=== PATIENT | female | born 1970 | race American Indian/Alaskan Native ===

== ENCOUNTER 2017-03-07 18:55 | Emergency (ER) | payer SELFPAY ==
[2017-03-07 19:28] LABS: Basophils % (Auto) 0.6 % (0.0-1.8); Eosinophils % (Auto) 4.6 % (0.0-4.3); Hematocrit 38.3 % (30.3-42.9); Hemoglobin 12.5 gm/dl (10.1-14.3); Mean Corpuscular HGB Conc 33 % (30-34); Mean Corpuscular Hemoglobin 27 pg (28-32); Mean Corpuscular Volume 82 fl (79-97); Platelet Count 178 K/mm3 (140-440); Red Blood Count 4.68 M/mm3 (3.65-5.03); Red Cell Distribution Width 14.5 % (13.2-15.2); White Blood Count 8.4 K/mm3 (4.5-11.0)
[2017-03-07 19:50] LABS: Anion Gap 17 mmol/L; Blood Urea Nitrogen 11 mg/dL (7-17); Calcium 9.3 mg/dL (8.4-10.2); Carbon Dioxide 25 mmol/L (22-30); Chloride 101.9 mmol/L (98-107); Glucose 112 mg/dL (65-100); Potassium 3.7 mmol/L (3.6-5.0); Sodium 140 mmol/L (137-145)
[2017-03-08] MEDS ORDERED: ZOFRAN IV ONE (01:35)
[2017-03-08] MEDS ORDERED: MORPHINE IV ONE (01:35)
[2017-03-08] MEDS ORDERED: VALIUM IV ONE (01:38)
[2017-03-08] MEDS ORDERED: NACL ONE (02:39)
--- NOTE | 2017-03-08 03:21 | Emergency Department Report ---
HPI - General Chief Complaint: Chest Pain Time Seen by Provider: 03/08/17 00:45 - HPI HPI: The patient is a 46-year-old female presents for evaluation of chest pain. The patient reports chest pain for the past one week, constant since onset, 7/10 in severity, sharp in quality, exacerbated with deep breaths, concentrated to the right side of the chest. The patient also reports associated dyspnea and bilateral lower leg swelling. The patient lives fever, cough, syncope, hemoptysis, unilateral leg swelling, oral contraceptive use, recent immobilization, history of DVT or PE, recent cancer. ED Past Medical Hx - Past Medical History Hx Asthma: Yes - Surgical History Additional Surgical History: tubal ligation, cyct removed, eye surgery - Social History Smoking Status: Current Every Day Smoker Substance Use Type: None - Medications Home Medications: Home Medications Medication Instructions Recorded Confirmed Last Taken Type Cyclobenzaprine [Flexeril] 10 mg PO TID PRN #14 tablet 10/30/15 Unknown Rx HYDROcodone/APAP 5-325 [[place] 1 - 2 each PO Q6HR PRN #20 tablet 10/30/15 Unknown Rx 5/325] Ibuprofen [Motrin 800 MG tab] 800 mg PO Q8HR PRN #20 tablet 10/30/15 Unknown Rx Furosemide [Lasix] 20 mg PO QDAY #20 tablet 03/08/17 Unknown Rx HYDROcodone/APAP 7.5-325 [[place] 1 each PO Q8HR PRN #15 tablet 03/08/17 Unknown Rx 7.5-325 mg TAB] ED Review of Systems ROS: Stated complaint: CHEST PAIN Other details as noted in HPI Constitutional: denies: fever ENT: denies: throat or neck pain Respiratory: denies: cough, shortness of breath Cardiovascular: reports chest pain Endocrine: denies unexplained weight loss or gain Gastrointestinal: denies: abdominal pain, nausea Genitourinary: denies: dysuria Musculoskeletal: denies: leg swelling Skin: denies: rash Neurological: denies: headache Hematological/Lymphatic: denies: easy bleeding or easy bruising Psych: denies sadness or hopelessness Physical Exam - Physical Exam Vital Signs: Vital Signs 03/07/17 03/07/17 03/08/17 19:13 23:53 00:01 Temperature 98 F Pulse Rate 102 H 82 Respiratory 20 14 Rate Blood Pressure 151/85 108/58 Blood Pressure 104/71 [Right] O2 Sat by Pulse 100 99 100 Oximetry 03/08/17 03/08/17 03/08/17 00:11 00:21 00:25 Temperature Pulse Rate 88 91 H 91 H Respiratory 19 17 20 Rate Blood Pressure 108/58 108/58 108/58 Blood Pressure [Right] O2 Sat by Pulse 100 100 99 Oximetry 03/08/17 03/08/17 01:00 02:01 Temperature Pulse Rate 91 H Respiratory 18 Rate Blood Pressure 124/52 124/52 Blood Pressure [Right] O2 Sat by Pulse 97 97 Oximetry Physical Exam: General: well-nourished, well-developed, no acute distress Head: Normocephalic, atraumatic Eyes: normal sclera ENT: Mucous membranes are pink and moist Neck: trachea midline, neck supple, No neck stiffness, no cervical adenopathy Respiratory: Breath sounds equal bilaterally, no wheezing, rales, or rhonchi Cardio: S1 and S2 present, no murmurs, rubs, gallops, capillary refill is brisk Abdomen: Normoactive bowel sounds, soft abdomen, no rigidity, no guarding or rebound tenderness Musc: 1+ pitting edema of bilateral lower legs Skin: No rash Neuro: no facial drooping, normal speech Psych: Normal affect ED Course Vital Signs 03/07/17 03/07/17 03/08/17 19:13 23:53 00:01 Temperature 98 F Pulse Rate 102 H 82 Respiratory 20 14 Rate Blood Pressure 151/85 108/58 Blood Pressure 104/71 [Right] O2 Sat by Pulse 100 99 100 Oximetry 03/08/17 03/08/17 03/08/17 00:11 00:21 00:25 Temperature Pulse Rate 88 91 H 91 H Respiratory 19 17 20 Rate Blood Pressure 108/58 108/58 108/58 Blood Pressure [Right] O2 Sat by Pulse 100 100 99 Oximetry 03/08/17 03/08/17 01:00 02:01 Temperature Pulse Rate 91 H Respiratory 18 Rate Blood Pressure 124/52 124/52 Blood Pressure [Right] O2 Sat by Pulse 97 97 Oximetry ED Medical Decision Making - Lab Data Result diagrams: 03/07/17 19:18 03/07/17 19:18 - Medical Decision Making The patient was seen and examined by myself. The patient is placed on a cardiac rehabilitation program director and continuous pulse ox. On initial evaluation, the patient was found to be in no distress. EKG was negative for findings suggestive of acute cardiac infarct. Labs and imaging are obtained. The patient is given IV morphine for her pain. Chest x-ray is negative for pneumothorax, focal consolidation, pulmonary vascular congestion, pleural effusion, or other obvious acute cardiopulmonary disease process. Lab results were non-concerning including levels of troponin, WBC, hemoglobin, hematocrit, electrolytes, renal function. CT angiogram of the chest is negative for pulmonary embolism, aortic dissection, or other emergent disease process. The patient was reevaluated and reported that their symptoms were markedly improved. The patient is stable for discharge with outpatient follow-up. The patient is given follow-up and return instructions. The patient expressed understanding and agreed with the plan. The patient is discharged in stable condition. Critical care attestation.: If time is entered above; I have spent that time in minutes in the direct care of this critically ill patient, excluding procedure time. ED Disposition Clinical Impression: Acute chest pain Dyspnea Qualifiers: Dyspnea type: shortness of breath Qualified Code(s): R06.02 - Shortness of breath Disposition: DISCHARGED TO HOME OR SELFCARE Is pt being admited?: No Does the pt Need Aspirin: No Condition: Stable Instructions: Chest Pain (ED) Prescriptions: Furosemide [Lasix] 20 mg PO QDAY #20 tablet HYDROcodone/APAP 7.5-325 [[place] 7.5-325 mg TAB] 1 each PO Q8HR PRN #15 tablet PRN Reason: Pain Referrals: PRIMARY CARE, [Primary Care Provider] - 3-5 Days Time of Disposition: 04:32
--- NOTE | 2017-03-08 03:54 | Cat Scan Report ---
FINAL REPORT PROCEDURE: CT ANGIO CHEST TECHNIQUE: Computerized tomographic angiography of the chest was performed after the IV injection of iodinated nonionic contrast including image processing. The image data was postprocessed using 2-dimensional multiplanar reformatted (MPR) and 3-dimensional (MIP and/or volume rendered) techniques. HISTORY: chest pain COMPARISON: No prior studies are available for comparison. FINDINGS: Heart and pericardium: Normal. Thoracic aorta: There is no thoracic aortic aneurysm or dissection.. Pulmonary vasculature: There is no pulmonary embolism.. Lymph nodes: No enlarged thoracic lymph nodes. Lungs: Lungs are well-expanded. There are no infiltrates. There are no effusions or pneumothoraces.. Pleural space: No effusion, thickening, or pneumothorax. Musculoskeletal structures: No significant abnormality. Upper abdominal structures: There is an 11 millimeter enhancing nodule in the left lobe of the liver which is nonspecific. This could be an atypical hemangioma or adenoma. There is a cyst in the upper pole the right kidney measuring 16 millimeters.. IMPRESSION: There is no pulmonary embolism. There is no thoracic aortic aneurysm or dissection. Lungs are clear.
[2017-03-08 04:29] VITALS: BP 121/44
[2017-03-08] MEDS ORDERED: VALIUM IM ONE (04:32)
[2017-03-08] MEDS ORDERED: LASIX IV ONE (04:33)
--- NOTE | 2017-03-08 08:31 | XRay Report ---
AP CHEST: History: Chest pain. AP view of the chest demonstrates a normal mediastinal and cardiac contour with clear lungs and normal bony and soft tissue structures. IMPRESSION: Normal AP chest.
== END 2017-03-08 04:57 | disposition home or self-care (01) ==
LOC: ED 18:55
DX: R07.89 Other chest pain (principal); R06.02 Shortness of breath; J45.909 Unspecified asthma, uncomplicated; F17.200 Nicotine dependence, unspecified, uncomplicated; Z98.51 Tubal ligation status
CPT/HCPCS: 36415; 71010; 71275; 80048; 84484; 84703; 85025; 93005; 93010; 96374; 96375; 99285; J2270; J2405; J3360; Q9967

== ENCOUNTER 2017-03-25 19:49 | Inpatient (IN) | payer OTHER ==
[2017-03-25 20:27] LABS: Basophils % (Auto) 0.6 % (0.0-1.8); Eosinophils % (Auto) 3.2 % (0.0-4.3); Hematocrit 35.5 % (30.3-42.9); Hemoglobin 11.5 gm/dl (10.1-14.3); Mean Corpuscular HGB Conc 32 % (30-34); Mean Corpuscular Hemoglobin 26 pg (28-32); Mean Corpuscular Volume 81 fl (79-97); Platelet Count 183 K/mm3 (140-440); Red Blood Count 4.41 M/mm3 (3.65-5.03); White Blood Count 6.4 K/mm3 (4.5-11.0)
[2017-03-25 20:55] LABS: Anion Gap 18 mmol/L; BUN/Creatinine Ratio 33.33; Blood Urea Nitrogen 10 mg/dL (7-17); Calcium 9.6 mg/dL (8.4-10.2); Carbon Dioxide 23 mmol/L (22-30); Chloride 103.6 mmol/L (98-107); Glucose 121 mg/dL (65-100); Potassium 3.6 mmol/L (3.6-5.0); Sodium 141 mmol/L (137-145)
[2017-03-25 21:59] LABS: Bilirubin,Urine NEG (Negative); Blood,Urine SM (Negative); Ketones,Urine TR mg/dL (Negative); Leukocyte Esterase,Urine SM (Negative); Mucus,Urine 3+ /HPF; Nitrite,Urine NEG (Negative); Urobilinogen,Urine < 2.0 mg/dL (<2.0)
[2017-03-25] MEDS ORDERED: ASPIRIN PO ONE (22:45)
[2017-03-25] MEDS ORDERED: CARAFATE PO ONE (22:45)
[2017-03-25] MEDS ORDERED: PEPCID IV ONE (22:45)
[2017-03-25] MEDS ORDERED: ALUM-MAG HYDROX-SIMETH 200-200-20MG/5ML PO ONE (22:45)
[2017-03-25] MEDS ORDERED: ZOFRAN IV ONE (22:45)
--- NOTE | 2017-03-25 22:46 | Emergency Department Report ---
ED General Adult HPI - General Chief complaint: Chest Pain Stated complaint: CHEST PAIN, DIFFICULTY IN BREATHING Time Seen by Provider: 03/25/17 22:35 Source: patient, RN notes reviewed, old records reviewed Mode of arrival: Ambulatory Limitations: No Limitations - History of Present Illness Initial comments: This is a 46-year-old female. She is previously unknown to me. She does not have a primary care doctor. She does not have a coper hand. The patient presents to the ER complaining of chest pain. The chest pain is central. It does not radiate to the back, arms and neck. It is associated with shortness of breath. Patient recently seen in this emergency room for similar complaints, at a negative CT scan of the chest for pneumonia, for pulmonary embolus. Patient states that she was instructed that she has congestive heart failure. However she has not had a formal echocardiogram, she's not had a stress test. The patient also endorses new onset orthopnea, onset paroxysmal nocturnal dyspnea, and marked decrease in exercise tolerance. The patient also indicates that she cannot drink or swallow, that she's had persistent nausea and vomiting , cannot pass anything through her esophagus. She reports intermittent swelling of the lower extremities. -: Gradual Location: chest Radiation: back Quality: aching Consistency: intermittent Improves with: rest Worsens with: eating, movement, other (exertion) Associated Symptoms: chest pain, malaise, nausea/vomiting, shortness of breath, weakness - Related Data Previous Rx's Medication Instructions Recorded Last Taken Type Cyclobenzaprine [Flexeril] 10 mg PO TID PRN #14 tablet 10/30/15 Unknown Rx HYDROcodone/APAP 5-325 [[place] 1 - 2 each PO Q6HR PRN #20 tablet 10/30/15 Unknown Rx 5/325] Ibuprofen [Motrin 800 MG tab] 800 mg PO Q8HR PRN #20 tablet 10/30/15 Unknown Rx Furosemide [Lasix] 20 mg PO QDAY #20 tablet 03/08/17 Unknown Rx HYDROcodone/APAP 7.5-325 [[place] 1 each PO Q8HR PRN #15 tablet 03/08/17 Unknown Rx 7.5-325 mg TAB] Allergies Allergy/AdvReac Type Severity Reaction Status Date / Time codeine AdvReac Unknown Verified 10/30/15 16:56 ED Review of Systems ROS: Stated complaint: CHEST PAIN, DIFFICULTY IN BREATHING Other details as noted in HPI ED Past Medical Hx - Past Medical History Previous Medical History?: Yes Hx Congestive Heart Failure: Yes Hx Asthma: Yes - Surgical History Past Surgical History?: Yes Additional Surgical History: tubal ligation, cyct removed, eye surgery - Social History Smoking Status: Never Smoker Substance Use Type: None - Medications Home Medications: Home Medications Medication Instructions Recorded Confirmed Last Taken Type Cyclobenzaprine [Flexeril] 10 mg PO TID PRN #14 tablet 10/30/15 Unknown Rx HYDROcodone/APAP 5-325 [[place] 1 - 2 each PO Q6HR PRN #20 tablet 10/30/15 Unknown Rx 5/325] Ibuprofen [Motrin 800 MG tab] 800 mg PO Q8HR PRN #20 tablet 10/30/15 Unknown Rx Furosemide [Lasix] 20 mg PO QDAY #20 tablet 03/08/17 Unknown Rx HYDROcodone/APAP 7.5-325 [[place] 1 each PO Q8HR PRN #15 tablet 03/08/17 Unknown Rx 7.5-325 mg TAB] ED Physical Exam - General Limitations: No Limitations General appearance: alert, in no apparent distress - Head Head exam: Present: atraumatic, normocephalic - Eye Eye exam: Present: normal appearance, EOMI. Absent: nystagmus - ENT ENT exam: Present: normal exam, normal orophraynx, mucous membranes moist, normal external ear exam - Neck Neck exam: Present: normal inspection, full ROM. Absent: tenderness, meningismus - Respiratory Respiratory exam: Present: normal lung sounds bilaterally. Absent: respiratory distress, wheezes, rales, rhonchi, stridor, chest wall tenderness, accessory muscle use, decreased breath sounds - Cardiovascular Cardiovascular Exam: Present: normal rhythm, tachycardia, normal heart sounds. Absent: systolic murmur, diastolic murmur, rubs, gallop - GI/Abdominal GI/Abdominal exam: Present: soft, normal bowel sounds. Absent: distended, tenderness, guarding, rebound, rigid, pulsatile mass - Extremities Exam Extremities exam: Present: normal inspection, full ROM, normal capillary refill , pedal edema. Absent: calf tenderness - Back Exam Back exam: Present: normal inspection, full ROM. Absent: tenderness, CVA tenderness (R), CVA tenderness (L), muscle spasm, paraspinal tenderness, vertebral tenderness - Neurological Exam Neurological exam: Present: alert, oriented X3, normal gait, other (Extraocular movements intact. Tongue midline. No facial droop. Facial sensation intact to light touch in the V1, V2, V3 distribution bilaterally. 5 and 5 strength in 4 extremities.. Sensation is intact to light touch in 4 extremities.). Absent : motor sensory deficit - Psychiatric Psychiatric exam: Present: normal affect, normal mood - Skin Skin exam: Present: warm, dry, intact, normal color. Absent: rash ED Course Vital Signs 03/25/17 03/25/17 03/25/17 20:01 21:33 21:35 Temperature 98.8 F Pulse Rate 112 H 109 H Respiratory 24 25 H Rate Blood Pressure 178/92 153/81 O2 Sat by Pulse 100 96 97 Oximetry 03/25/17 03/25/17 03/25/17 21:41 21:45 21:51 Temperature Pulse Rate 109 H 105 H 110 H Respiratory 25 H 23 Rate Blood Pressure 153/81 152/74 O2 Sat by Pulse 100 98 Oximetry - Reevaluation(s) Reevaluation #1: 03/25/17 23:52 Differential diagnosis: Congestive heart failure, acute coronary syndrome, cardiomyopathy, pulmonary hypertension, esophagitis, esophageal stricture, GERD , reflux, pericarditis, myocarditis Assessment and plan: 46-year-old female with chest pain, shortness of breath, associated with physical exertion and eating. Laboratory studies are appreciated. EKG unremarkable with the exception of sinus tachycardia. No pulmonary embolus or DVT risk factors, low risk by well's criteria, recently had a negative CT scan of the chest. Given ambiguous clinical picture, clinical symptoms, difficulty tolerating liquid feeds, patient will be admitted for acute coronary syndrome risk stratification. Given her obesity, most likely has obstructive sleep apnea, probable pulmonary hypertension, possible right-sided heart failure. The case is discussed with the Hospital physician, Dr. Ordoñez, who accepts the patient to his service. The patient was treated symptomatically. From a volume perspective, the patient has no rales or rhonchi, her chest x-ray is clear, she is saturating well, I don't believe she requires emergent diuresis from the ER. ED Medical Decision Making - Lab Data Result diagrams: 03/25/17 20:12 03/25/17 20:12 Vital Signs 03/25/17 03/25/17 03/25/17 20:01 21:33 21:35 Temperature 98.8 F Pulse Rate 112 H 109 H Respiratory 24 25 H Rate Blood Pressure 178/92 153/81 O2 Sat by Pulse 100 96 97 Oximetry 03/25/17 03/25/17 03/25/17 21:41 21:45 21:51 Temperature Pulse Rate 109 H 105 H 110 H Respiratory 25 H 23 Rate Blood Pressure 153/81 152/74 O2 Sat by Pulse 100 98 Oximetry Lab Results 03/25/17 03/25/17 03/25/17 Range/Units 20:12 20:12 21:29 WBC 6.4 (4.5-11.0) K/mm3 RBC 4.41 (3.65-5.03) M/mm3 Hgb 11.5 (10.1-14.3) gm/dl Hct 35.5 (30.3-42.9) % MCV 81 (79-97) fl MCH 26 L (28-32) pg MCHC 32 (30-34) % RDW 14.0 (13.2-15.2) % Plt Count 183 (140-440) K/mm3 Lymph % (Auto) 18.6 (13.4-35.0) % [place] % (Auto) 13.6 H (0.0-7.3) % Eos % (Auto) 3.2 (0.0-4.3) % Baso % (Auto) 0.6 (0.0-1.8) % Lymph # 1.2 (1.2-5.4) K/mm3 [place] # 0.9 H (0.0-0.8) K/mm3 Eos # 0.2 (0.0-0.4) K/mm3 Baso # 0.0 (0.0-0.1) K/mm3 Seg Neutrophils % 64.0 (40.0-70.0) % Seg Neutrophils # 4.1 (1.8-7.7) K/mm3 PT (12.2-14.9) Sec. INR (0.87-1.13) Sodium 141 (137-145) mmol/L Potassium 3.6 (3.6-5.0) mmol/L Chloride 103.6 (98-107) mmol/L Carbon Dioxide 23 (22-30) mmol/L Anion Gap 18 mmol/L BUN 10 (7-17) mg/dL Creatinine 0.3 L (0.7-1.2) mg/dL Estimated GFR > 60 ml/min BUN/Creatinine Ratio 33.33 % Glucose 121 H (65-100) mg/dL Calcium 9.6 (8.4-10.2) mg/dL Magnesium (1.7-2.3) mg/dL Total Bilirubin (0.1-1.2) mg/dL Direct Bilirubin (0-0.2) mg/dL Indirect Bilirubin mg/dL AST (5-40) units/L ALT (7-56) units/L Alkaline Phosphatase (35-129) units/L Troponin T < 0.010 (0.00-0.029) ng/mL NT-Pro-B Natriuret Pep 654.3 H (0-450) pg/mL Total Protein (6.3-8.2) g/dL Albumin (3.9-5) g/dL Albumin/Globulin Ratio % Lipase (13-60) units/L Urine Color Yellow (Yellow) Urine Turbidity Cloudy (Clear) Urine pH 5.0 (5.0-7.0) Ur Specific [place] 1.021 (1.003-1.030) Urine Protein 100 mg/dl (Negative) mg/dL Urine Glucose (UA) Neg (Negative) mg/dL Urine Ketones Tr (Negative) mg/dL Urine Blood Sm (Negative) Urine Nitrite Neg (Negative) Urine Bilirubin Neg (Negative) Urine Urobilinogen < 2.0 (<2.0) mg/dL Ur Leukocyte Esterase Sm (Negative) Urine WBC (Auto) 4.0 (0.0-6.0) /HPF Urine RBC (Auto) 4.0 (0.0-6.0) /HPF U Epithel Cells (Auto) 32.0 H (0-13.0) /HPF Urine Mucus 3+ /HPF Urine HCG, Qual Negative (Negative) 03/25/17 03/25/17 03/25/17 Range/Units 22:52 22:52 22:52 WBC (4.5-11.0) K/mm3 RBC (3.65-5.03) M/mm3 Hgb (10.1-14.3) gm/dl Hct (30.3-42.9) % MCV (79-97) fl MCH (28-32) pg MCHC (30-34) % RDW (13.2-15.2) % Plt Count (140-440) K/mm3 Lymph % (Auto) (13.4-35.0) % [place] % (Auto) (0.0-7.3) % Eos % (Auto) (0.0-4.3) % Baso % (Auto) (0.0-1.8) % Lymph # (1.2-5.4) K/mm3 [place] # (0.0-0.8) K/mm3 Eos # (0.0-0.4) K/mm3 Baso # (0.0-0.1) K/mm3 Seg Neutrophils % (40.0-70.0) % Seg Neutrophils # (1.8-7.7) K/mm3 PT 15.3 H (12.2-14.9) Sec. INR 1.22 H (0.87-1.13) Sodium (137-145) mmol/L Potassium (3.6-5.0) mmol/L Chloride (98-107) mmol/L Carbon Dioxide (22-30) mmol/L Anion Gap mmol/L BUN (7-17) mg/dL Creatinine (0.7-1.2) mg/dL Estimated GFR ml/min BUN/Creatinine Ratio % Glucose (65-100) mg/dL Calcium (8.4-10.2) mg/dL Magnesium 1.60 L (1.7-2.3) mg/dL Total Bilirubin 0.40 (0.1-1.2) mg/dL Direct Bilirubin < 0.2 (0-0.2) mg/dL Indirect Bilirubin 0.2 mg/dL AST 46 H (5-40) units/L ALT 80 H (7-56) units/L Alkaline Phosphatase 52 (35-129) units/L Troponin T < 0.010 (0.00-0.029) ng/mL NT-Pro-B Natriuret Pep (0-450) pg/mL Total Protein 5.7 L (6.3-8.2) g/dL Albumin 3.2 L (3.9-5) g/dL Albumin/Globulin Ratio 1.3 % Lipase 18 (13-60) units/L Urine Color (Yellow) Urine Turbidity (Clear) Urine pH (5.0-7.0) Ur Specific [place] (1.003-1.030) Urine Protein (Negative) mg/dL Urine Glucose (UA) (Negative) mg/dL Urine Ketones (Negative) mg/dL Urine Blood (Negative) Urine Nitrite (Negative) Urine Bilirubin (Negative) Urine Urobilinogen (<2.0) mg/dL Ur Leukocyte Esterase (Negative) Urine WBC (Auto) (0.0-6.0) /HPF Urine RBC (Auto) (0.0-6.0) /HPF U Epithel Cells (Auto) (0-13.0) /HPF Urine Mucus /HPF Urine HCG, Qual (Negative) - EKG Data -: EKG Interpreted by Me EKG shows normal: sinus rhythm Rate: tachycardia - EKG Data When compared to previous EKG there are: no significant change Interpretation: no acute changes, unchanged when compared t 03/25/17 23:54 sinus tachycardia, 118 bpm, borderline left axis deviation, QTC 456 ms, not consistent with STEMI, normal compared to prior EKG, nonspecific changes taking place. - Radiology Data Radiology results: image reviewed interpreted by me: X-ray of the chest is negative for acute disease Critical care attestation.: If time is entered above; I have spent that time in minutes in the direct care of this critically ill patient, excluding procedure time. ED Disposition Clinical Impression: Chest pain, Dyspnea, Hypomagnesemia Disposition: OP ADMITTED IP TO THIS HOSP Is pt being admited?: Yes Condition: Good Instructions: Chest Pain (ED)
[2017-03-25] MEDS ORDERED: NITROSTAT SL PRN (22:47)
[2017-03-25] MEDS ORDERED: NACL 0.9% 250ML 250 ML IV ONE (22:47)
[2017-03-25 23:18] LABS: INR 1.22 (0.87-1.13)
[2017-03-25 23:33] LABS: Alanine Aminotransferase 80 units/L (7-56); Albumin 3.2 g/dL (3.9-5); Albumin/Globulin Ratio 1.3 %; Alkaline Phosphatase 52 units/L (35-129); Lipase 18 units/L (13-60); Total Protein 5.7 g/dL (6.3-8.2)
[2017-03-25 23:35] LABS: Bilirubin,Direct < 0.2 mg/dL (0-0.2); Bilirubin,Indirect 0.2 mg/dL
[2017-03-25] MEDS ORDERED: MAGNESIUM SULFATE 2GM/50ML 2 GM/50 ML BAG IV ONE (23:55)
--- NOTE | 2017-03-26 00:22 | XRay Report ---
FINAL REPORT PROCEDURE: XR CHEST ROUTINE 2V TECHNIQUE: PA and lateral chest radiographs were obtained. CPT 43695 HISTORY: cp COMPARISON: No prior studies are available for comparison. FINDINGS: Heart: Normal. Mediastinum/Vessels: Normal. Lungs/Pleural space: Normal. Bony thorax: No acute osseous abnormality. Other: IMPRESSION: Normal examination.
[2017-03-26] MEDS ORDERED: ZOFRAN IV PRN (03:07)
--- NOTE | 2017-03-26 03:14 | History and Physical Report ---
History of Present Illness Date of examination: 03/26/17 Date of admission: 03/25/17 23:55 Chief complaint: Chest pain History of present illness: Patient is a 46-year-old woman with history of hypertension, CHF and asthma who presents with substernal moderate intense progressively worse intermittent nonradiating chest pains which started 2 weeks ago associated with shortness of breath and severe nausea vomiting 2 weeks. There is no aggravating or relieving factor to his chest pains. She has symptoms of PND. Patient has a metallic taste in her mouth. She has dysphagia that is getting progressively worse to solids and liquids. She's having trouble ingesting water without dysphagia. Initially, patient came to the emergency department on 03/08/2017 for pleuritic type of chest pain and had a CTA of the chest that showed no PE and the lungs were clear but there was a 11 mm enhancing nodular left lobe liver which is nonspecific this could be atypical hemangioma or adenoma and there is a cyst in the upper pole of the right kidney measuring 16 mm. patient is sore and has pains all over. Past medical history: As HPI Past surgical history: Tubal ligation, 2 ovarian cyst removal and eye surgery age 9 Social history: She smokes cigarettes I have advised stops, she denies any alcohol or drug abuse Family history: Positive for diabetes mellitus and hypertension Medications and Allergies Allergies Allergy/AdvReac Type Severity Reaction Status Date / Time codeine AdvReac Unknown Verified 10/30/15 16:56 Home Medications Medication Instructions Recorded Confirmed Last Taken Type Cyclobenzaprine [Flexeril] 10 mg PO TID PRN #14 tablet 10/30/15 Unknown Rx HYDROcodone/APAP 5-325 [[place] 1 - 2 each PO Q6HR PRN #20 tablet 10/30/15 Unknown Rx 5/325] Ibuprofen [Motrin 800 MG tab] 800 mg PO Q8HR PRN #20 tablet 10/30/15 Unknown Rx Furosemide [Lasix] 20 mg PO QDAY #20 tablet 03/08/17 Unknown Rx HYDROcodone/APAP 7.5-325 [[place] 1 each PO Q8HR PRN #15 tablet 03/08/17 Unknown Rx 7.5-325 mg TAB] Active Meds: Active Medications Dextrose/Sodium Chloride (D5/0.45ns) 1,000 mls @ 100 mls/hr IV DIRECT MARCOS Nitroglycerin (Nitrostat) 0.4 mg SL .Q5MIN PRN PRN Reason: Chest Pain Ondansetron HCl (Zofran) 4 mg IV Q4H PRN PRN Reason: Nausea And Vomiting Pantoprazole Sodium (Protonix) 40 mg IV QDAY MARCOS Review of Systems All systems: negative (as HPI and all other ROS reviewed and negative.) Exam - Physical Exam Narrative exam: GEN: WDWN, obese, NAD, AWAKE, ALERT, ORIENTATED 3 HEENT: NCAT, PERRL, EOMI, OP CLEAR NECK: SUPPLE, NO THYROMEGALY, NO JVD, NO LAD CVS: Regular tachycardia NORMAL S1S2 LUNGS/CHEST: CTA B, NORMAL CHEST EXPANSION B, GOOD AIR ENTRY B, severe reproducible chest wall tenderness ABD: SOFT NTND, GBS, NO REBOUND OR GUARDING EXT/SKIN: NO SIGNIFICANT EDEMA OR RASH MSK: FROM X 4 EXTREMITIES, fibromyalgia trigger points tenderness without synovitis NEURO: CN 2-12 GROSSLY INTACT, NO new FOCAL DEFICITS PSY: Anxious - Constitutional Vitals: Temp Pulse Resp BP Pulse Ox 98.8 F 108 H 25 H 167/76 96 03/25/17 20:01 03/26/17 02:15 03/26/17 02:15 03/26/17 02:15 03/26/17 02:15 Results - Labs CBC & Chem 7: 03/25/17 20:12 03/25/17 20:12 Assessment and Plan Patient is a 46-year-old woman with history of hypertension, CHF and asthma who presents with substernal moderate intense progressively worse intermittent nonradiating chest pains which started 2 weeks ago associated with shortness of breath and severe nausea vomiting 2 weeks. There is no aggravating or relieving factor to his chest pains. She has symptoms of PND. Patient has a metallic taste in her mouth. She has dysphagia that is getting progressively worse to solids and liquids. She's having trouble ingesting water without dysphagia. Initially, patient came to the emergency department on 03/08/2017 for pleuritic type of chest pain and had a CTA of the chest that showed no PE and the lungs were clear but there was a 11 mm enhancing nodular left lobe liver which is nonspecific this could be atypical hemangioma or adenoma and there is a cyst in the upper pole of the right kidney measuring 16 mm. patient is sore and has pains all over. -Chest pain, appears atypical/GERD related: plan is to rule out any cardiac issues with stress test and then have GI do EGD for the dysphagia. -Dysphagia: Consulted GI -SIRS without source of infection: continue to monitor, get blood culture and urine culture -Intractable Nausea vomiting: Treat with Zofran, nothing by mouth for now: Treated with D5 half-normal saline -Hypomagnesemia: Replace, recheck -DVT prophylaxis: sq lovenox -Liver nodule, mild elevated transaminitis, elevated INR: consulted GI
[2017-03-26] MEDS ORDERED: D5/0.45NS 1,000 ML IV SCH (04:00)
[2017-03-26] MEDS ORDERED: NACL 0.9% 500 ML 500 ML IV SCH (06:00)
[2017-03-26] MEDS ORDERED: D5/0.45NS 500 ML IV ONE (06:12)
[2017-03-26] MEDS ORDERED: LEXISCAN IV ONE ×2 (07:47→08:00)
[2017-03-26] MEDS ORDERED: TYLENOL ONE (09:20)
[2017-03-26] MEDS ORDERED: TYLENOL PO ONE (09:28)
--- NOTE | 2017-03-26 11:07 | Event Note ---
Date: 03/26/17 Nuclear stress test completed. No complications. Stress test negative for significant ischemia. Low risk for signficant coronary artery disease. EF 74%.
[2017-03-26] MEDS: PROTONIX IV SCH (12:12)
--- NOTE | 2017-03-26 13:41 | Progress Note ---
Assessment and Plan Assessment and plan: Chest pain. Stress test negative. Chest pain may be due to GERD. Protonix. Dysphagia. Etiology unclear. GI consulted. Nausea and vomiting. Zofran iv prn. Protonix Hypertension. BP stable. Asthma, stable. Chronic congestive heart failure. DVT prophylaxis. Will use heparin subcut. Full Code Status History Interval history: chest pain, Nausea and vomiting Difficulty swallowing Hospitalist Physical - Physical exam Narrative exam: Gen appearance: Not in acute distress,morbidly obese HEENT: Normocephalic, atraumatic Lungs : Lungs clear to auscultation bilaterally, no crackles, no wheezes Heart :S1-S2 regular, no murmurs, rubs or gallop Abdomen: soft, tender epigastric region, bone tenderness, no guarding,non- distended,normal bowel sounds Extremities:no edema no clubbing or cyanosis, Neuro: Awake, alert, oriented 3, no focal neurologic signs Psych: Normal mood - Constitutional Vitals: Temp Pulse Resp BP Pulse Ox 98.3 F 119 H 20 138/68 100 03/26/17 08:00 03/26/17 09:23 03/26/17 12:24 03/26/17 09:23 03/26/17 12:24 Results - Labs CBC & Chem 7: 03/25/17 20:12 03/25/17 20:12 Labs: Laboratory Last Values WBC 6.4 K/mm3 (4.5-11.0) 03/25/17 20:12 RBC 4.41 M/mm3 (3.65-5.03) 03/25/17 20:12 Hgb 11.5 gm/dl (10.1-14.3) 03/25/17 20:12 Hct 35.5 % (30.3-42.9) 03/25/17 20:12 MCV 81 fl (79-97) 03/25/17 20:12 MCH 26 pg (28-32) L 03/25/17 20:12 MCHC 32 % (30-34) 03/25/17 20:12 RDW 14.0 % (13.2-15.2) 03/25/17 20:12 Plt Count 183 K/mm3 (140-440) 03/25/17 20:12 Lymph % (Auto) 18.6 % (13.4-35.0) 03/25/17 20:12 [place] % (Auto) 13.6 % (0.0-7.3) H 03/25/17 20:12 Eos % (Auto) 3.2 % (0.0-4.3) 03/25/17 20:12 Baso % (Auto) 0.6 % (0.0-1.8) 03/25/17 20:12 Lymph # 1.2 K/mm3 (1.2-5.4) 03/25/17 20:12 [place] # 0.9 K/mm3 (0.0-0.8) H 03/25/17 20:12 Eos # 0.2 K/mm3 (0.0-0.4) 03/25/17 20:12 Baso # 0.0 K/mm3 (0.0-0.1) 03/25/17 20:12 Seg Neutrophils % 64.0 % (40.0-70.0) 03/25/17 20:12 Seg Neutrophils # 4.1 K/mm3 (1.8-7.7) 03/25/17 20:12 PT 15.3 Sec. (12.2-14.9) H 03/25/17 22:52 INR 1.22 (0.87-1.13) H 03/25/17 22:52 Sodium 141 mmol/L (137-145) 03/25/17 20:12 Potassium 3.6 mmol/L (3.6-5.0) 03/25/17 20:12 Chloride 103.6 mmol/L (98-107) 03/25/17 20:12 Carbon Dioxide 23 mmol/L (22-30) 03/25/17 20:12 Anion Gap 18 mmol/L 03/25/17 20:12 BUN 10 mg/dL (7-17) 03/25/17 20:12 Creatinine 0.3 mg/dL (0.7-1.2) L 03/25/17 20:12 Estimated GFR > 60 ml/min 03/25/17 20:12 BUN/Creatinine Ratio 33.33 % 03/25/17 20:12 Glucose 121 mg/dL (65-100) H 03/25/17 20:12 Calcium 9.6 mg/dL (8.4-10.2) 03/25/17 20:12 Magnesium 1.60 mg/dL (1.7-2.3) L 03/25/17 22:52 Total Bilirubin 0.40 mg/dL (0.1-1.2) 03/25/17 22:52 Direct Bilirubin < 0.2 mg/dL (0-0.2) 03/25/17 22:52 Indirect Bilirubin 0.2 mg/dL 03/25/17 22:52 AST 46 units/L (5-40) H 03/25/17 22:52 ALT 80 units/L (7-56) H 03/25/17 22:52 Alkaline Phosphatase 52 units/L (35-129) 03/25/17 22:52 Troponin T < 0.010 ng/mL (0.00-0.029) 03/26/17 02:01 NT-Pro-B Natriuret Pep 654.3 pg/mL (0-450) H 03/25/17 20:12 Total Protein 5.7 g/dL (6.3-8.2) L 03/25/17 22:52 Albumin 3.2 g/dL (3.9-5) L 03/25/17 22:52 Albumin/Globulin Ratio 1.3 % 03/25/17 22:52 Lipase 18 units/L (13-60) 03/25/17 22:52 Urine Color Yellow (Yellow) 03/25/17 21: Urine Turbidity Cloudy (Clear) 03/25/17 21: Urine pH 5.0 (5.0-7.0) 03/25/17 21: Ur Specific [place] 1.021 (1.003-1.030) 03/25/17 21: Urine Protein 100 mg/dl mg/dL (Negative) 03/25/17 21: Urine Glucose (UA) Neg mg/dL (Negative) 03/25/17 21: Urine Ketones Tr mg/dL (Negative) 03/25/17 21: Urine Blood Sm (Negative) 03/25/17 21: Urine Nitrite Neg (Negative) 03/25/17 21: Urine Bilirubin Neg (Negative) 03/25/17 21: Urine Urobilinogen < 2.0 mg/dL (<2.0) 03/25/17 21: Ur Leukocyte Esterase Sm (Negative) 03/25/17 21: Urine WBC (Auto) 4.0 /HPF (0.0-6.0) 03/25/17 21:29 Urine RBC (Auto) 4.0 /HPF (0.0-6.0) 03/25/17 21:29 U Epithel Cells (Auto) 32.0 /HPF (0-13.0) H 03/25/17 21:29 Urine Mucus 3+ /HPF 03/25/17 21:29 Urine HCG, Qual Negative (Negative) 03/25/17 21:29
--- NOTE | 2017-03-26 15:14 | Gastroenterology Consultation ---
History of Present Illness - Reason for Consult Consult date: 03/26/17 dysphagia Requesting physician: TARA PAK - History of Present Illness Ms Lynn is a 46 yo aaf who presents with chest pain/pressure x several weeks. Cardiac work-up/stress test negative. She also reports episodes of solid food dysphagia, particularly to meats (sticking sensation in throat). She is able to tolerate most other po intake. She reports epigastric abdominal pain after meals for the past couple weeks as well, with episodes of n/v after meals. This usually occurs with motion after meals (after standing/walking). She denies NSAIDs, GI bleeding, or weight loss. She reports chronic constipation which is unchanged. Past History Past Medical History: other (CHF, asthma, HTN) Past Surgical History: Other (ovarian cyst removal ) Social history: smoking (1 ppd, denies alcohol use) Family history: diabetes Medications and Allergies Allergies Allergy/AdvReac Type Severity Reaction Status Date / Time codeine AdvReac Unknown Verified 10/30/15 16:56 Home Medications Medication Instructions Recorded Confirmed Last Taken Type Cyclobenzaprine [Flexeril] 10 mg PO TID PRN #14 tablet 10/30/15 Unknown Rx HYDROcodone/APAP 5-325 [[place] 1 - 2 each PO Q6HR PRN #20 tablet 10/30/15 Unknown Rx 5/325] Ibuprofen [Motrin 800 MG tab] 800 mg PO Q8HR PRN #20 tablet 10/30/15 Unknown Rx Furosemide [Lasix] 20 mg PO QDAY #20 tablet 03/08/17 Unknown Rx HYDROcodone/APAP 7.5-325 [[place] 1 each PO Q8HR PRN #15 tablet 03/08/17 Unknown Rx 7.5-325 mg TAB] Active Meds: Active Medications Enoxaparin Sodium (Lovenox) 40 mg SUB-Q QDAY@2200 MARCOS Sodium Chloride (Nacl 0.9% 500 Ml) 500 mls @ 50 mls/hr IV DIRECT MARCOS Nitroglycerin (Nitrostat) 0.4 mg SL .Q5MIN PRN PRN Reason: Chest Pain Ondansetron HCl (Zofran) 4 mg IV Q4H PRN PRN Reason: Nausea And Vomiting Last Admin: 03/26/17 12:13 Dose: 4 mg Pantoprazole Sodium (Protonix) 40 mg IV QDAY MARCOS Last Admin: 03/26/17 12:12 Dose: 40 mg Review of Systems - Review of Systems All systems: negative Cardiovascular: shortness of breath Exam - Constitutional Vital Signs: Temp Pulse Resp BP Pulse Ox 97.1 F L 119 H 20 130/61 100 03/26/17 12:00 03/26/17 12:00 03/26/17 12:24 03/26/17 12:00 03/26/17 12:24 General appearance: no acute distress, obese - EENT Eyes: PERRL, EOM intact ENT: hearing intact, clear oral mucosa, dentition normal - Neck Neck: supple, normal ROM - Respiratory Respiratory effort: normal Respiratory: bilateral: CTA - Cardiovascular Rhythm: regular Heart Sounds: Present: S1 & S2 Extremities: no ischemia, Full ROM - Gastrointestinal General gastrointestinal: Present: soft, tender (+ epigastric ttp, no rebound/ guarding, nd, +bs) - Integumentary Integumentary: Present: clear, warm - Musculoskeletal Musculoskeletal: normal - Neurologic Neurological: alert and oriented x3 - Psychiatric Psychiatric: appropriate mood/affect - Labs CBC & Chem 7: 03/25/17 20:12 03/25/17 20:12 Lab Results: Laboratory Results - last 24 hr 03/26/17 02:01 Troponin T < 0.010 Assessment and Plan 1. chest pain - negative stress test/cardiac work-up on admission 2. dysphagia - reports solid food dysphagia, no significant reflux sx's, will obtain esophogram. 3. abdominal pain - unclear etiology, will obtain RUQ US. Consider CT scan if no improvement in symptoms 4. Elevated liver enzymes - hepatocellular pattern, unclear etiology. ddx includes hepatic congestion 2/2 CHF, NAFLD, should rule out viral hepatitis as well. denies alcohol use. RUQ US as above 5. Constipation - chronic constipation, bowel regimen/miralax daily
[2017-03-26] MEDS: LOPRESSOR PO SCH ×2 (17:46→22:11)
[2017-03-26] MEDS ORDERED: LOVENOX SUB-Q SCH (22:00)
[2017-03-26] MEDS: HEPARIN SUB-Q SCH (22:13)
[2017-03-27 05:48] LABS: Hematocrit 34.7 % (30.3-42.9); Hemoglobin 11.2 gm/dl (10.1-14.3); Mean Corpuscular HGB Conc 32 % (30-34); Mean Corpuscular Volume 80 fl (79-97); Platelet Count 180 K/mm3 (140-440); Red Blood Count 4.36 M/mm3 (3.65-5.03); Red Cell Distribution Width 13.9 % (13.2-15.2); White Blood Count 6.3 K/mm3 (4.5-11.0)
[2017-03-27 05:51] LABS: Mean Corpuscular Hemoglobin 26 pg (28-32)
[2017-03-27 06:04] LABS: Anion Gap 18 mmol/L; Blood Urea Nitrogen 10 mg/dL (7-17); Calcium 9.2 mg/dL (8.4-10.2); Carbon Dioxide 21 mmol/L (22-30); Chloride 102.7 mmol/L (98-107); Glucose 113 mg/dL (65-100); Potassium 3.9 mmol/L (3.6-5.0); Sodium 138 mmol/L (137-145)
[2017-03-27 06:17] VITALS: BP 110/53
[2017-03-27] MEDS: HEPARIN SUB-Q SCH (06:23)
[2017-03-27] MEDS ORDERED: MAGNESIUM SULFATE 4GM/100ML 4 GM/100 ML BAG IV ONE (08:00)
--- NOTE | 2017-03-27 09:44 | Fluoroscopy Report ---
Barium swallow: History: Dysphagia. Findings: Transit of barium through the cervical and thoracic esophagus appears normal. No extrinsic or intrinsic filling defects are noted. No stricture or extravasation of contrast or evidence of ulcer. There is moderate gastroesophageal reflux noted. Seen mainly in the supine position. No evidence of hiatal hernia. Impression: Gastroesophageal reflux extending to the mid thoracic region.
--- NOTE | 2017-03-27 09:51 | Ultrasound Report ---
Sonogram right upper quadrant: History: Abdominal pain. Elevated enzymes. Findings: Aortic diameter 1.6 cm. Normal liver. No intrahepatic or extrahepatic duct dilatation. Common bile duct diameter 3 mm. Gallbladder wall thickness 1.7 mm. No calculi in the gallbladder. No pericholecystic fluid. Right kidney 10.8 x 4.1 x 5.1 cm. Cortical thickness 0.9 cm. Cyst of the right kidney measures 1.6 x 1.4 x 1.6 cm. Impression: Cyst mid anterior right kidney.
[2017-03-27] MEDS: LOPRESSOR PO SCH (10:29)
[2017-03-27] MEDS: PROTONIX IV SCH (10:30)
--- NOTE | 2017-03-27 10:39 | Discharge Summary ---
Providers - Providers Date of Admission: 03/25/17 23:55 Date of discharge: 03/27/17 Attending physician: TARA PAK 03/26/17 03:07 Consult to Physician [CONS] Routine Consulting Provider: BRITTANI LYNN Reason For Exam: dysphagia Place consult to:: Zackery Lynn MD Notified:: a service Phone number called:: [phone] Was contact made?: Yes If yes, spoke with:: vera Time called:: 09:23 Primary care physician: MYKE PAGE MD Hospitalization Condition: Good Disposition: DISCHARGED TO HOME OR SELFCARE - Discharge Diagnoses (1) GERD (gastroesophageal reflux disease) Status: Acute Qualifiers: Esophagitis presence: E Exam - Constitutional Vitals: Temp Pulse Resp BP Pulse Ox 98.3 F 107 H 18 110/53 95 03/27/17 06:00 03/27/17 06:00 03/27/17 06:00 03/27/17 06:00 03/27/17 06:00 Plan Activity: no restrictions Diet: other (soft, low fat diet) Additional Instructions: 1.Folllow up with PCP in 1 week. 2.Folllow up with Dr. Monroe, GI in 1 week Follow up with: PRIMARY CAREMD [Primary Care Provider] - 3-5 Days Prescriptions: Famotidine [Pepcid] 20 mg PO BID #60 tablet
[2017-03-27 12:30] LABS: Alanine Aminotransferase 76 units/L (7-56); Alkaline Phosphatase 51 units/L (35-129)
[2017-03-27 12:31] LABS: Bilirubin,Direct < 0.2 mg/dL (0-0.2)
--- NOTE | 2017-03-28 03:50 | Treadmill Report ---
THALLIUM STRESS TEST LEFT VENTRICLE: Left ventricular chamber size is within normal. Perfusion study demonstrates homogeneous uptake of the tracer in all segments. No significant perfusion defects identified. Gated analysis demonstrates normal left ventricular systolic function, ejection fraction calculated at 74%. CONCLUSION: Normal myocardial perfusion study. JOB# [id number] CA/NTS
== END 2017-03-27 16:00 | disposition home or self-care (01) | DRG 392 ==
LOC: ED 19:49 → 4A 23:55
PROVIDERS: ADMIT Internal Medicine; ATTEND Internal Medicine
DX: K21.9 Gastro-esophageal reflux disease without esophagitis (principal); R65.10 Systemic inflammatory response syndrome (SIRS) of non-infectious origin without acute organ dysfunction; Z68.41 Body mass index [BMI] 40.0-44.9, adult; E83.42 Hypomagnesemia; I50.9 Heart failure, unspecified; E66.9 Obesity, unspecified; I11.0 Hypertensive heart disease with heart failure; R13.10 Dysphagia, unspecified; F17.210 Nicotine dependence, cigarettes, uncomplicated; R74.0 Nonspecific elevation of levels of transaminase and lactic acid dehydrogenase [LDH]; K59.00 Constipation, unspecified; Z83.3 Family history of diabetes mellitus; Z88.5 Allergy status to narcotic agent; Z98.51 Tubal ligation status; Z82.49 Family history of ischemic heart disease and other diseases of the circulatory system
CPT/HCPCS: 36415; 71020; 74220; 76705; 78452; 80048; 80074; 81001; 81025; 83690; 83735; 83880; 84484; 85025; 85027; 85610; 87040; 87086; 93005; 93010; 93017; 96361; 96365; 96375; A9502; C9113; J1644; J2405; J2785; J3475; J7040; J7050

== ENCOUNTER 2018-04-30 07:38 | Emergency (ER) | payer SELFPAY ==
[2018-04-30 08:05] VITALS: BP 133/66
[2018-04-30] MEDS ORDERED: MOTRIN PO ONE (09:48)
--- NOTE | 2018-04-30 09:54 | Emergency Department Report ---
ED Fall HPI - General Chief Complaint: Fall Stated Complaint: NECK, BACK AND HIP PAIN Time Seen by Provider: 04/30/18 09:31 Source: patient Mode of arrival: Ambulatory - History of Present Illness Initial Comments: Ms. Lynn is a pleasant female with hyperthyroidism who slippped on water at [facility] on Tuesday. She had a slow fall. She grabbed the grocery cart and a display in attempt to break the fall. Her legs twisted on the way down. She has moderate right flank pain radiating right hip. mild left knee. Pain developed the day after the incident. MD Complaint: fall -: Sudden Fall From: standing When Fall Occurred: other (2 days) Place Fall Occurred: other ([facility] on Tuesday ) Loss of Consciousness: none Prolonged Down Time?: no Symptoms Prior to Fall: none Severity: moderate Context: tripped/slipped Associated Symptoms: denies: headache, neck pain, numbness, weakness, chest paint, shortness of breath, abdominal pain, hematuria, unable to walk, lightheaded, vertigo, confusion - Related Data Previous Rx's Medication Instructions Recorded Last Taken Type Cyclobenzaprine [Flexeril 10 MG 10 mg PO TID PRN #14 tablet 10/30/15 Unknown Rx TAB] HYDROcodone/APAP 5-325 [[place] 1 - 2 each PO Q6HR PRN #20 tablet 10/30/15 Unknown Rx 5-325 mg TAB] Furosemide [Lasix TAB] 20 mg PO QDAY #20 tablet 03/08/17 Unknown Rx Famotidine [Pepcid] 20 mg PO BID #60 tablet 03/27/17 Unknown Rx Metoprolol [Lopressor TAB] 12.5 mg PO BID #60 tablet 03/27/17 Unknown Rx Omeprazole Magnesium [PriLOSEC Otc] 20 mg PO QDAY #30 tablet. 03/27/17 Unknown Rx Cyclobenzaprine [Flexeril] 10 mg PO TID PRN #20 tablet 04/30/18 Unknown Rx Ibuprofen 400 mg PO QID 5 Days #20 tablet 04/30/18 Unknown Rx Allergies Allergy/AdvReac Type Severity Reaction Status Date / Time codeine AdvReac Unknown Verified 10/30/15 16:56 ED Review of Systems ROS: Stated complaint: NECK, BACK AND HIP PAIN Other details as noted in HPI Constitutional: denies: fever, malaise Respiratory: denies: cough Cardiovascular: denies: chest pain Gastrointestinal: denies: abdominal pain Neurological: denies: numbness, paresthesias, abnormal gait ED Past Medical Hx - Past Medical History Hx Congestive Heart Failure: No (no hx of CHF) Hx Asthma: Yes Additional medical history: HYPERTHYROIDISM - Surgical History Additional Surgical History: tubal ligation, cyct removed, eye surgery - Social History Smoking Status: Current Every Day Smoker Substance Use Type: None - Medications Home Medications: Home Medications Medication Instructions Recorded Confirmed Last Taken Type Cyclobenzaprine [Flexeril 10 MG 10 mg PO TID PRN #14 tablet 10/30/15 Unknown Rx TAB] HYDROcodone/APAP 5-325 [[place] 1 - 2 each PO Q6HR PRN #20 tablet 10/30/15 Unknown Rx 5-325 mg TAB] Furosemide [Lasix TAB] 20 mg PO QDAY #20 tablet 03/08/17 Unknown Rx Famotidine [Pepcid] 20 mg PO BID #60 tablet 03/27/17 Unknown Rx Metoprolol [Lopressor TAB] 12.5 mg PO BID #60 tablet 03/27/17 Unknown Rx Omeprazole Magnesium [PriLOSEC Otc] 20 mg PO QDAY #30 tablet. 03/27/17 Unknown Rx Cyclobenzaprine [Flexeril] 10 mg PO TID PRN #20 tablet 04/30/18 Unknown Rx Ibuprofen 400 mg PO QID 5 Days #20 tablet 04/30/18 Unknown Rx ED Physical Exam - General Limitations: No Limitations General appearance: alert, in no apparent distress - Head Head exam: Present: atraumatic, normocephalic - Eye Eye exam: Present: normal appearance - Neck Neck exam: Present: normal inspection. Absent: tenderness - Respiratory Respiratory exam: Present: respiratory distress - Extremities Exam Extremities exam: Present: normal inspection, full ROM. Absent: tenderness - Neurological Exam Neurological exam: Present: alert, oriented X3 - Psychiatric Psychiatric exam: Present: normal affect, normal mood - Skin Skin exam: Present: warm, dry, intact, normal color - Other Other exam information: no spinal tenderness, FROM right hip without pain. FROM left knee no effusion. nl gait ED Course Vital Signs 04/30/18 08:01 Temperature 98.3 F Pulse Rate 73 Respiratory 18 Rate Blood Pressure 133/66 O2 Sat by Pulse 100 Oximetry ED Medical Decision Making - Medical Decision Making Ms. Lynn has lower back strain and left knee sprain after slipping at [facility]. No blunt trauma. Twisting mechanism. Rx: flexeril ibuprofen Critical care attestation.: If time is entered above; I have spent that time in minutes in the direct care of this critically ill patient, excluding procedure time. ED Disposition Clinical Impression: Fall, Back pain, Strain of left knee Disposition: TO HOME OR SELFCARE Is pt being admited?: No Does the pt Need Aspirin: No Condition: Stable Instructions: Low Back Strain (ED), Knee Pain (ED) Prescriptions: Cyclobenzaprine [Flexeril] 10 mg PO TID PRN #20 tablet PRN Reason: Muscle Spasm Ibuprofen 400 mg PO QID 5 Days #20 tablet Referrals: [facility] [Outside] - 3-5 Days Time of Disposition: 09:59
== END 2018-04-30 10:24 | disposition home or self-care (01) ==
LOC: ED 07:38
DX: S86.912A Strain of unspecified muscle(s) and tendon(s) at lower leg level, left leg, initial encounter (principal); M54.5 Low back pain; E05.90 Thyrotoxicosis, unspecified without thyrotoxic crisis or storm; J45.909 Unspecified asthma, uncomplicated; F17.200 Nicotine dependence, unspecified, uncomplicated; Z98.51 Tubal ligation status; Z88.5 Allergy status to narcotic agent; W01.0XXA Fall on same level from slipping, tripping and stumbling without subsequent striking against object, initial encounter; Y93.89 Activity, other specified; Y92.89 Other specified places as the place of occurrence of the external cause; Y99.8 Other external cause status

== ENCOUNTER 2021-06-11 13:40 | Emergency (ER) | payer BC ==
[2021-06-11] MEDS ORDERED: ASPIRIN 325 MG TAB PO ONE (13:47)
[2021-06-11 13:49] VITALS: BP 179/91
--- NOTE | 2021-06-11 15:00 | XRay Report ---
CHEST 2 VIEWS INDICATION / CLINICAL INFORMATION: CP. COMPARISON: None available. FINDINGS: SUPPORT DEVICES: None. HEART / MEDIASTINUM: No significant abnormality. LUNGS / PLEURA: No significant pulmonary or pleural abnormality. No pneumothorax. ADDITIONAL FINDINGS: No significant additional findings. IMPRESSION: 1. No acute findings. Signer Name: Ranjith Guan MD Signed: 06/11/2021 2:55 PM Workstation Name: [id number]
[2021-06-11 15:03] LABS: Basophils % (Auto) 0.3 % (0.0-1.8); Eosinophils # (Auto) 0.2 K/mm3 (0.0-0.4); Eosinophils % (Auto) 2.9 % (0.0-4.3); Hematocrit 38.5 % (30.3-42.9); Hemoglobin 12.8 gm/dl (10.1-14.3); Lymphocytes # (Auto) 1.2 K/mm3 (1.2-5.4); Lymphocytes % (Auto) 15.9 % (13.4-35.0); Mean Corpuscular HGB Conc 33 % (30-34); Mean Corpuscular Volume 80 fl (79-97); Monocytes # (Auto) 0.8 K/mm3 (0.0-0.8); Monocytes % (Auto) 10.5 % (0.0-7.3); Platelet Count 180 K/mm3 (140-440); Red Blood Count 4.83 M/mm3 (3.65-5.03); Red Cell Distribution Width 13.7 % (13.2-15.2)
[2021-06-11 15:26] LABS: Alanine Aminotransferase 27 units/L (7-56); Blood Urea Nitrogen 10 mg/dL (7-17); Calcium 10.1 mg/dL (8.4-10.2); Hemolysis Index 0
[2021-06-11 15:27] LABS: BUN/Creatinine Ratio 25
--- NOTE | 2021-06-11 18:38 | Emergency Department Report ---
- General Chief Complaint: Chest Pain Stated Complaint: CHEST PAIN/BODY PAINS/CONGESTION/ HOT SWEATS Time Seen by Provider: 06/11/21 18:24 Source: patient Mode of arrival: Ambulatory Limitations: No Limitations - History of Present Illness Initial Comments: Patient is a 50-year-old female presents emergency room complaints of URI symptoms that began 2 days ago. She states that her granddaughter also has cold-like symptoms and she was in contact with her and got sick a few days later. She has associated dry cough, chills, generalized body aches, sweats, subjective fever, chest discomfort, nausea, vomiting, diarrhea. She is able to tolerate p.o. intake. She denies any shortness of breath or abdominal pain. She has not been vaccinated for COVID-19. She has not received COVID-19 testing since becoming sick. Past medical history of hypothyroidism. Allergy to codeine. - Related Data Previous Rx's Medication Instructions Recorded Last Taken Type hydroCHLOROthiazide [HCTZ] 25 mg PO QDAY #30 tablet 10/16/18 Unknown Rx predniSONE [Deltasone] 20 mg PO QDAY #5 tab 10/16/18 Unknown Rx Benzonatate [Tessalon Perles] 100 mg PO Q8HR PRN #12 capsule 06/11/21 Unknown Rx Ondansetron [Zofran Odt] 4 mg PO Q8HR PRN #10 tab.rapdis 06/11/21 Unknown Rx guaiFENesin ER [Mucinex ER] 600 mg PO BID #14 tablet.er 06/11/21 Unknown Rx Allergies Allergy/AdvReac Type Severity Reaction Status Date / Time codeine AdvReac Unknown Verified 06/11/21 13:44 ED Review of Systems ROS: Stated complaint: CHEST PAIN/BODY PAINS/CONGESTION/ HOT SWEATS Other details as noted in HPI Comment: All other systems reviewed and negative ED Past Medical Hx - Past Medical History Hx Congestive Heart Failure: No Hx Asthma: Yes Additional medical history: HYPERTHYROIDISM - Surgical History Additional Surgical History: tubal ligation, cyct removed, eye surgery - Social History Smoking Status: Current Some Day Smoker Substance Use Type: Alcohol - Medications Home Medications: Home Medications Medication Instructions Recorded Confirmed Last Taken Type hydroCHLOROthiazide [HCTZ] 25 mg PO QDAY #30 tablet 10/16/18 Unknown Rx predniSONE [Deltasone] 20 mg PO QDAY #5 tab 10/16/18 Unknown Rx Benzonatate [Tessalon Perles] 100 mg PO Q8HR PRN #12 capsule 06/11/21 Unknown Rx Ondansetron [Zofran Odt] 4 mg PO Q8HR PRN #10 tab.rapdis 06/11/21 Unknown Rx guaiFENesin ER [Mucinex ER] 600 mg PO BID #14 tablet.er 06/11/21 Unknown Rx ED Physical Exam - General Limitations: No Limitations General appearance: alert, in no apparent distress - Head Head exam: Present: atraumatic, normocephalic - Eye Eye exam: Present: normal appearance - ENT ENT exam: Present: mucous membranes moist - Respiratory Respiratory exam: Present: normal lung sounds bilaterally. Absent: respiratory distress, wheezes, rales, rhonchi, stridor, chest wall tenderness, accessory muscle use, decreased breath sounds, prolonged expiratory - Cardiovascular Cardiovascular Exam: Present: regular rate, normal rhythm, normal heart sounds. Absent: systolic murmur, diastolic murmur, rubs, gallop - Neurological Exam Neurological exam: Present: alert, oriented X3 - Psychiatric Psychiatric exam: Present: normal affect, normal mood - Skin Skin exam: Present: warm, dry, intact ED Course Vital Signs 06/11/21 06/11/21 13:47 13:48 Temperature 98.3 F Pulse Rate 81 94 H Respiratory 18 Rate Blood Pressure 179/91 O2 Sat by Pulse 99 99 Oximetry ED Medical Decision Making - Lab Data Result diagrams: 06/11/21 14:12 06/11/21 14:12 Lab Results 06/11/21 06/11/21 06/11/21 Range/Units 14:12 14:12 17:09 WBC 7.8 (4.5-11.0) K/mm3 RBC 4.83 (3.65-5.03) M/mm3 Hgb 12.8 (10.1-14.3) gm/dl Hct 38.5 (30.3-42.9) % MCV 80 (79-97) fl MCH 27 L (28-32) pg MCHC 33 (30-34) % RDW 13.7 (13.2-15.2) % Plt Count 180 (140-440) K/mm3 Lymph % (Auto) 15.9 (13.4-35.0) % Norman % (Auto) 10.5 H (0.0-7.3) % Eos % (Auto) 2.9 (0.0-4.3) % Baso % (Auto) 0.3 (0.0-1.8) % Lymph # (Auto) 1.2 (1.2-5.4) K/mm3 Norman # (Auto) 0.8 (0.0-0.8) K/mm3 Eos # (Auto) 0.2 (0.0-0.4) K/mm3 Baso # (Auto) 0.0 (0.0-0.1) K/mm3 Seg Neutrophils % 70.4 H (40.0-70.0) % Seg Neutrophils # 5.5 (1.8-7.7) K/mm3 Sodium 144 (137-145) mmol/L Potassium 3.6 (3.6-5.0) mmol/L Chloride 106.3 (98-107) mmol/L Carbon Dioxide 25 (22-30) mmol/L Anion Gap 16 mmol/L BUN 10 (7-17) mg/dL Creatinine 0.4 L (0.6-1.2) mg/dL Estimated GFR > 60 ml/min BUN/Creatinine Ratio 25 % Glucose 103 H (65-100) mg/dL Calcium 10.1 (8.4-10.2) mg/dL Total Bilirubin 0.20 (0.1-1.2) mg/dL AST 18 (5-40) units/L ALT 27 (7-56) units/L Alkaline Phosphatase 86 (35-129) units/L Troponin T < 0.010 < 0.010 (0.00-0.029) ng/mL Total Protein 7.3 (6.3-8.2) g/dL Albumin 4.0 (3.9-5) g/dL Albumin/Globulin Ratio 1.2 % - EKG Data EKG shows normal: sinus rhythm, axis, intervals, QRS complexes, ST-T waves Rate: normal - Radiology Data Radiology results: report reviewed Ordering Physician: JUAN CARLOS GALAVIZ MD Date of Service: 06/11/21 Procedure(s): XR chest routine 2V Accession Number(s): [id number] cc: JAUN CARLOS GALAVIZ MD Fluoro Time In Minutes: CHEST 2 VIEWS INDICATION / CLINICAL INFORMATION: CP. COMPARISON: None available. FINDINGS: SUPPORT DEVICES: None. HEART / MEDIASTINUM: No significant abnormality. LUNGS / PLEURA: No significant pulmonary or pleural abnormality. No pneumothorax. ADDITIONAL FINDINGS: No significant additional findings. IMPRESSION: 1. No acute findings. Signer Name: Ranjith Kincaid MD Signed: 06/11/2021 2:55 PM Workstation Name: [id number] Transcribed By: CW Dictated By: PATRICK KINCAID MD Electronically Authenticated By: PATRICK KINCAID MD Signed Date/Time: 06/11/211454 DD/ 54 TD/TT: - Medical Decision Making Patient is a 50-year-old female presents emergency room complaints of URI symptoms that began 2 days ago. She states that her granddaughter also has cold-like symptoms and she was in contact with her and got sick a few days later. She has associated dry cough, chills, generalized body aches, sweats, subjective fever, chest discomfort, nausea, vomiting, diarrhea. She is able to tolerate p.o. intake. She denies any shortness of breath or abdominal pain. She has not been vaccinated for COVID-19. She has not received COVID-19 testing since becoming sick. Past medical history of hypothyroidism. Allergy to codeine. vss. Orders placed prior to my examination. EKG is WNL. CXR: 1. No acute findings. Labs are normal. Troponin is negative x2. Symptoms most consistent with viral URI. She has no clinical signs of bacterial pneumonia or bacterial bronchitis at this time. Patient given prescription for medications for symptomatic relief. Advised patient Please take medication as prescribed. Please increase your fluid intake over the next several days. May take Tylenol as needed for fever or body aches. Follow-up with a primary care doctor for reexamination. Return to emergency room immediately for any new or worsening symptoms including but not limited to difficulty breathing, shortness of breath, severe chest pain, unable to tolerate by mouth intake, etc. Recommend for you to get COVID-19 testing, and self quarantine as necessary. Critical care attestation.: If time is entered above; I have spent that time in minutes in the direct care of this critically ill patient, excluding procedure time. ED Disposition Clinical Impression: Upper respiratory infection Qualifiers: URI type: unspecified URI Qualified Code(s): J06.9 - Acute upper respiratory infection, unspecified Disposition: DC-01 TO HOME OR SELFCARE Is pt being admited?: No Does the pt Need Aspirin: No Condition: Stable Instructions: Upper Respiratory Infection, Adult Additional Instructions: Please take medication as prescribed. Please increase your fluid intake over the next several days. May take Tylenol as needed for fever or body aches. Follow-up with a primary care doctor for reexamination. Return to emergency room immediately for any new or worsening symptoms including but not limited to difficulty breathing, shortness of breath, severe chest pain, unable to tolerate by mouth intake, etc. Recommend for you to get COVID-19 testing, and self quarantine as necessary. Prescriptions: guaiFENesin ER [Mucinex ER] 600 mg PO BID #14 tablet.er Benzonatate [Tessalon Perles] 100 mg PO Q8HR PRN #12 capsule PRN Reason: cough Ondansetron [Zofran Odt] 4 mg PO Q8HR PRN #10 tab.rapdis PRN Reason: nausea/vomiting Referrals: your, primary care doctor [Other] - 2-3 Days Forms: Work/School Release Form(ED) Time of Disposition: 18:36 Print Language: BENINESE
--- NOTE | 2021-06-12 17:50 | Electrocardiograph Report ---
[facility] Test Date: 2021-06-11 Test Time: 13:52:13 Pat Name: GERMAIN OBREGON Department: Room: Gender: F Construction Lineman: BRIDGETTE : 1970 Requested By: ED DOC Order Number: [id number] Reading MD: Elvin Cruz Measurements Intervals [place] Rate: 88 P: 62 CT: 162 QRS: 2 QRSD: 81 T: 38 QT: 354 QTc: 429 Interpretive Statements Sinus rhythm No previous ECG available for comparison Electronically Signed On 06-12-2021 17:50:22 EDT by Elvin Cruz
== END 2021-06-11 19:00 | disposition home or self-care (01) ==
LOC: ED 13:40
DX: J06.9 Acute upper respiratory infection, unspecified (principal); J45.909 Unspecified asthma, uncomplicated; E05.90 Thyrotoxicosis, unspecified without thyrotoxic crisis or storm; F17.200 Nicotine dependence, unspecified, uncomplicated
CPT/HCPCS: 36415; 71046; 80053; 84484; 85025; 93005; 99283

== ENCOUNTER 2021-11-02 09:44 | Emergency (ER) | payer BC ==
--- NOTE | 2021-11-02 12:09 | Emergency Department Report ---
- General Chief Complaint: Chest Pain Stated Complaint: CP, ST, Hyperthyroidism Time Seen by Provider: 11/02/21 12:02 Source: patient Mode of arrival: Ambulatory Limitations: No Limitations - History of Present Illness Initial Comments: Patient is a 51-year-old female presents emergency room with complaints of sore throat that began 3 days ago. Patient has associated cough with clear mucus production, congestion, voice hoarseness. She denies any fever, vomiting, shortness of breath, difficulty swallowing, chest pain. Past medical history of hyperthyroidism. No allergies to medications. - Related Data Previous Rx's Medication Instructions Recorded Last Taken Type hydroCHLOROthiazide [HCTZ] 25 mg PO QDAY #30 tablet 10/16/18 Unknown Rx predniSONE [Deltasone] 20 mg PO QDAY #5 tab 10/16/18 Unknown Rx Benzonatate [Tessalon Perles] 100 mg PO Q8HR PRN #12 capsule 06/11/21 Unknown Rx Ondansetron [Zofran Odt] 4 mg PO Q8HR PRN #10 tab.rapdis 06/11/21 Unknown Rx guaiFENesin ER [Mucinex ER] 600 mg PO BID #14 tablet.er 06/11/21 Unknown Rx Benzonatate [Tessalon Perles] 100 mg PO Q8HR PRN #10 capsule 11/02/21 Unknown Rx Prednisone [predniSONE 10 mg 10 mg PO .TAPER #1 tab.ds.pk 11/02/21 Unknown Rx (6-Day Pack, 21 Tabs)] guaiFENesin ER [Mucinex ER] 600 mg PO Q12H #14 tablet.er 11/02/21 Unknown Rx Allergies Allergy/AdvReac Type Severity Reaction Status Date / Time codeine AdvReac Unknown Verified 06/11/21 13:44 ED Review of Systems ROS: Stated complaint: CP, ST, Hyperthyroidism Other details as noted in HPI Comment: All other systems reviewed and negative ED Past Medical Hx - Past Medical History Hx Congestive Heart Failure: No Hx Asthma: Yes Additional medical history: HYPERTHYROIDISM - Surgical History Additional Surgical History: tubal ligation, cyct removed, eye surgery - Social History Smoking Status: Current Some Day Smoker Substance Use Type: Alcohol - Medications Home Medications: Home Medications Medication Instructions Recorded Confirmed Last Taken Type hydroCHLOROthiazide [HCTZ] 25 mg PO QDAY #30 tablet 10/16/18 Unknown Rx predniSONE [Deltasone] 20 mg PO QDAY #5 tab 10/16/18 Unknown Rx Benzonatate [Tessalon Perles] 100 mg PO Q8HR PRN #12 capsule 06/11/21 Unknown Rx Ondansetron [Zofran Odt] 4 mg PO Q8HR PRN #10 tab.rapdis 06/11/21 Unknown Rx guaiFENesin ER [Mucinex ER] 600 mg PO BID #14 tablet.er 06/11/21 Unknown Rx Benzonatate [Tessalon Perles] 100 mg PO Q8HR PRN #10 capsule 11/02/21 Unknown Rx Prednisone [predniSONE 10 mg 10 mg PO .TAPER #1 tab.ds.pk 11/02/21 Unknown Rx (6-Day Pack, 21 Tabs)] guaiFENesin ER [Mucinex ER] 600 mg PO Q12H #14 tablet.er 11/02/21 Unknown Rx ED Physical Exam - General Limitations: No Limitations General appearance: alert, in no apparent distress - Head Head exam: Present: atraumatic, normocephalic - Eye Eye exam: Present: normal appearance - ENT ENT exam: Present: normal orophraynx, mucous membranes moist, TM's normal bilate rally, normal external ear exam, other (no tonsillar hypertrophy or exudates, uvula is midline, no uvular edema or deviation, no trismus, no tongue elevation, no muffled voice, voice is slightly hoarse, no submandibular edema) - Neck Neck exam: Absent: lymphadenopathy, thyromegaly - Respiratory Respiratory exam: Present: normal lung sounds bilaterally. Absent: respiratory distress, wheezes, rales, rhonchi, stridor, chest wall tenderness, accessory muscle use, decreased breath sounds, prolonged expiratory - Cardiovascular Cardiovascular Exam: Present: regular rate, normal rhythm, normal heart sounds. Absent: systolic murmur, diastolic murmur, rubs, gallop - Neurological Exam Neurological exam: Present: alert, oriented X3 - Psychiatric Psychiatric exam: Present: normal affect, normal mood - Skin Skin exam: Present: warm, dry, intact ED Course Vital Signs 11/02/21 11/02/21 09:47 13:00 Temperature 97.5 F L 97.3 F L Pulse Rate 72 70 Respiratory 18 16 Rate Blood Pressure 132/68 138/76 [Right] O2 Sat by Pulse 100 100 Oximetry ED Medical Decision Making - Radiology Data Radiology results: report reviewed Ordering Physician: MERLYN INIGUEZ Date of Service: 11/02/21 Procedure(s): XR chest routine 2V Accession Number(s): [id number] cc: MERLYN INIGUEZ Fluoro Time In Minutes: CHEST 2 VIEWS INDICATION / CLINICAL INFORMATION: cough. COMPARISON: 06/11/2021 FINDINGS: SUPPORT DEVICES: None. HEART / MEDIASTINUM: No significant abnormality. LUNGS / PLEURA: No significant pulmonary or pleural abnormality. No pneumothorax. ADDITIONAL FINDINGS: No significant additional findings. IMPRESSION: 1. No acute findings. Signer Name: Shyam Brumfield DO Signed: 11/02/2021 12:35 PM Workstation Name: [id number] Transcribed By: RAD Dictated By: SHYAM BRUMFIELD DO Electronically Authenticated By: SHYAM BRUMFIELD DO Signed Date/Time: 11/02/21 1235 DD/ 1235 TD/TT: - Medical Decision Making Patient is a 51-year-old female presents emergency room with complaints of sore throat that began 3 days ago. Patient has associated cough with clear mucus production, congestion, voice hoarseness. She denies any fever, vomiting, shortness of breath, difficulty swallowing, chest pain. Past medical history of hyperthyroidism. No allergies to medications. Vitals are normal. Normal oropharynx, breath sounds are clear bilaterally. Chest x-ray 1. No acute findings. Symptoms likely related to URI and laryngitis. Patient given prescription for medication. Discussed supportive care and symptomatic treatment in the importance of oral hydration. Discussed resting voice, drinking warm tea, eating warm soup broth. Advised patient Please take medication as prescribed. Increase your fluid intake. Drink warm tea eat warm soup broth. Rest your voice. Please avoid smoking. Follow-up with your primary care doctor. Return to emergency room for any new or worsening symptoms. Recommend outpatient COVID-19 testing and if positive will need to self quarantine for 10 days from onset of symptoms. Critical care attestation.: If time is entered above; I have spent that time in minutes in the direct care of this critically ill patient, excluding procedure time. ED Disposition Clinical Impression: Laryngitis URI (upper respiratory infection) Qualifiers: URI type: unspecified URI Qualified Code(s): J06.9 - Acute upper respiratory infection, unspecified Disposition: 01 HOME / SELF CARE / HOMELESS Is pt being admited?: No Does the pt Need Aspirin: No Condition: Stable Instructions: Laryngitis, Viral Respiratory Infection Additional Instructions: Please take medication as prescribed. Increase your fluid intake. Drink warm tea eat warm soup broth. Rest your voice. Please avoid smoking. Follow-up with your primary care doctor. Return to emergency room for any new or worsening symptoms. Recommend outpatient COVID-19 testing and if positive will need to self quarantine for 10 days from onset of symptoms. Prescriptions: guaiFENesin ER [Mucinex ER] 600 mg PO Q12H #14 tablet.er Prednisone [predniSONE 10 mg (6-Day Pack, 21 Tabs)] 10 mg PO .TAPER #1 tab.ds.pk Benzonatate [Tessalon Perles] 100 mg PO Q8HR PRN #10 capsule PRN Reason: cough Referrals: PRIMARY CARE, [Primary Care Provider] - 3-5 Days Time of Disposition: 12:42 Print Language: FRENCH
--- NOTE | 2021-11-02 12:40 | XRay Report ---
CHEST 2 VIEWS INDICATION / CLINICAL INFORMATION: cough. COMPARISON: 06/11/2021 FINDINGS: SUPPORT DEVICES: None. HEART / MEDIASTINUM: No significant abnormality. LUNGS / PLEURA: No significant pulmonary or pleural abnormality. No pneumothorax. ADDITIONAL FINDINGS: No significant additional findings. IMPRESSION: 1. No acute findings. Signer Name: Shyam Brumfield DO Signed: 11/02/2021 12:35 PM Workstation Name: [id number]
[2021-11-02 13:03] VITALS: BP 138/76
== END 2021-11-02 13:03 | disposition home or self-care (01) ==
LOC: ED 09:44
DX: J04.0 Acute laryngitis (principal); J06.9 Acute upper respiratory infection, unspecified; Z88.5 Allergy status to narcotic agent; J45.909 Unspecified asthma, uncomplicated; F17.200 Nicotine dependence, unspecified, uncomplicated; F10.20 Alcohol dependence, uncomplicated
CPT/HCPCS: 71046; 99283